=== PATIENT | female | born 1985 | race Caucasian/White ===

== ENCOUNTER 2016-11-11 09:23 | Emergency (ER) | payer MEDICAID ==
[~2016-11-11] VITALS: Ht 160 cm; Wt 68.0 kg
[~2016-11-11 09:23] MED LIST: ACET325T38 PO; CLON1TAB3 PO; HYDR-3812 PO; IBUP-1773 PO; PREN1TAB86 PO; RT-ALBUINH IH
--- OUTSIDE RECORDS SUMMARY | 2016-11-11 09:27 | XMS REPORT | Continuity of Care Document ---
Author Author Interface Organization Interface Address Unknown Phone Unavailable Problems Problem Status Onset Date Classification Date Reported Comments Source Abnormal cytology findings (finding) Active 05/10/2012 Problem 11/17/2015 [facility] Anxiety (finding) Active Problem 11/17/2015 [facility] Helicobacter pylori antibody above reference range (finding) Active 05/15/2012 Problem 11/17/2015 [facility] HPV - Human papillomavirus test positive (finding) Active Problem 11/17/2015 per patient verbal history [facility] , function (observable entity) Resolved 03/26/2012 Problem 11/17/2015 [facility] Tobacco user (finding) Active Problem 11/17/2015 Added by Discern Expert based on Social History Documentation [facility] Other nonspecific abnormal findings Active 05/10/2012 Problem 01/01/2014 [facility] Anxiety state (finding) Active 05/10/2012 Problem 2013 [facility] Unspecified symptom associated with female genital organs 12/28/2013 Diagnosis 01/01/2014 [facility] Medications Medication Details Route Status Patient Instructions Ordering Provider Order Date Source Allergies, Adverse Reactions, Alerts Substance Category Reaction Severity Reaction type Status Date Reported Comments Source NKA Assertion Drug allergy [facility] Immunizations Immunization Date Given Site Status Last Updated Comments Source Tdap 01/30/2013 Left Deltoid tetanus/diphth/pertuss (Tdap) adult/adol<sup>1</sup> Wilian Reason for Medication: See Instructions [facility] Results Order Name Results Value Reference Range Date Interpretation Comments Source Vital Signs Vital Sign Value Date Comments Source Encounters Location Location Details Encounter Type Encounter Number Reason For Visit Attending Provider ADM Date DC Date Status Source [facility] [id number] Day Surgery [id number] Liborio Mojica 12/28/2013 12/28/2013 Active [facility] [id number] Preadmit [id number] Liborio Galina Active [facility] [id number] Preadmit [id number] Elias Sulaiman 05/17/2014 Active [facility] [id number] Preadmit [id number] Liborio Galina Active [facility] Preadmit [id number] . No Family Physician 07/31/2015 11/13/2015 [place] [facility] [id number] Liborio Mojica 201312/29/2013 [facility] Procedures Procedure Code Date Perfomer Comments Source No data available for this section [facility] COLONOSCOPY 09/26/2009 [facility] DIAGNOSTIC LAPAROSCOPY [place] [facility]
[2016-11-11] MEDS ORDERED: OXYC-465 PO (09:41)
[2016-11-11] MEDS ORDERED: CITA20TA7 PO (09:41)
--- NOTE | 2016-11-11 10:18 | Diagnostic Imaging Report ---
PA and lateral views of the chest Indication: Chest pain Findings: The lungs are clear. The heart size is normal. There is no effusion or pneumothorax The mediastinum and christopher appear unremarkable. Impression: Unremarkable study. Dictated by: Dictated on workstation # [id number]
--- NOTE | 2016-11-11 10:24 | ED Chest Pain ---
General Chief Complaint: Chest Wall/Rib Pain Stated Complaint: CHEST PAIN Nursing Triage Note: Pt c/o intermittent right and left sided CP x1 week. Pt reports chest pain is now gone but she is feeling anxious because of pain earlier. Pt reports pain was worse when taking a deep breath. Nursing Sepsis Screen: No Definite Risk Source: patient Exam Limitations: no limitations History of Present Illness Time seen by provider: 10:22 Initial Comments To ER with reports of intermittent sharp chest pain when breathing over the course of the past week. She states that she did feel anxious earlier and thought that may be a cause of the pain but now decided that the pain feels differently. Her primary care provider has diagnosed her recently with fibromyalgia. Timing/Duration: intermittent Severity/Quality: sharp Location: central Radiation: no radiation Activities at Onset: none Associated Symptoms: denies symptoms Allergies and Home Medications Allergies Coded Allergies: divalproex sodium (Unverified Allergy, Unknown, 11/11/16) Home Medications Citalopram Hydrobromide 20 Mg Tablet #30 20 MG PO DAILY (Reported) Oxycodone HCl/Acetaminophen 1 Each Tablet #60 1 TAB PO Q4H PRN PRN PAIN ( Reported) Review of Systems Constitutional: see HPI EENTM: No Symptoms Reported Respiratory: See HPIDenies Cough, Denies Shortness of Air, Denies SOA With Exertion, Denies SOA at Rest Cardiovascular: See HPI Chest Pain Gastrointestinal: No Symptoms Reported Genitourinary: No Symptoms Reported Musculoskeletal: no symptoms reported Skin: no symptoms reported Psychiatric/Neurological: No Symptoms Reported Endocrine: No Symptoms Reported Past Vgmgokb-[id number]-Gnqswi Hx Patient Social History Alcohol Use: Denies Use Recreational Drug Use: No Smoking Status: Current Everyday Smoker Type Used: Cigarettes Recent Foreign Travel: No Contact w/Someone Who Travel: No Recent Infectious Disease Expo: No Recent Hopitalizations: No Immunizations Up To Date Tetanus Booster (TDap): Less than 5yrs Date of Influenza Vaccine: Jun 16, 2016 Seasonal Allergies Seasonal Allergies: No Surgeries HX Surgeries: Yes (scope for endometriosis) Respiratory Hx Respiratory Disorders: Yes Respiratory Disorders: Asthma Cardiovascular Hx Cardiac Disorders: No Neurological Hx Neurological Disorders: No Reproductive System Hx Reproductive Disorders: Yes Sexually Transmitted Disease: No HIV/AIDS: No Female Reproductive Disorders: Endometriosis Genitourinary Hx Genitourinary Disorders: No Gastrointestinal Hx Gastrointestinal Disorders: No Musculoskeletal Hx Musculoskeletal Disorders: Yes ("possible lupus and/or fibro"--seeing [facility] dyer for dx) Musculoskeletal Disorders: Fibromyalgia Endocrine Hx Endocrine Disorders: No (possible lupus - will see [facility]) Endocrine Disorders: Lupus HEENT HX ENT Disorders: No Cancer Hx Cancer: No Psychosocial Hx Psychiatric Problems: Yes Behavioral Health Disorders: Anxiety, PTSD Integumentary HX Skin/Integumentary Disorder: No Blood Transfusions Hx Blood Disorders: No Adverse Reaction to a Blood Tr: No Family Medical History Family Medial History: FH: bladder cancer Grandparents (Maternal grandfather) FH: heart disease 19 FATHER Grandparents (Paternal Grandfather) FH: prostate cancer Grandparents (Maternal grandfather) Physical Exam Vital Signs Vital Sign - Last 12Hours 11/11/16 09:36 Pulse 67 Resp 18 B/P 110/77 Pulse Ox 98 O2 Delivery Room Air Capillary Refill : Less Than 3 Seconds General Appearance: No Apparent Distress WD/WN HEENT: PERRL/EOMI TMs Normal Neck: Full Range of Motion Normal Inspection Respiratory: Normal Breath Sounds No Accessory Muscle Use No Respiratory Distress Cardiovascular: Regular Rate, Rhythm Normal Peripheral Pulses Gastrointestinal: Non Tender Soft Extremity: Normal Capillary Refill Normal Inspection Neurologic/Psychiatric: Alert Oriented x3 No Motor/Sensory Deficits Skin: Normal Color Warm/Dry Progress/Results/Core Measures Results/Orders Lab Results Laboratory Tests Test 11/11/16 10:33 Range/Units Basophils # (Auto) 0.0 0.0-0.1 10^3/uL Basophils (%) (Auto) 0 0-10 % D-Dimer < 0.27 0.00-0.49 UG/ML Eosinophils # (Auto) 0.1 0.0-0.3 10^3/uL Eosinophils (%) (Auto) 1 0-10 % Hematocrit 39 35-52 % Hemoglobin 13.9 11.5-16.0 G/DL Lymphocytes # (Auto) 2.1 1.0-4.0 X 10^3 Lymphocytes (%) (Auto) 33 12-44 % Mean Corpuscular Hemoglobin 31 25-34 PG Mean Corpuscular Hemoglobin Concent 36 32-36 G/DL Mean Corpuscular Volume 88 80-99 FL Mean Platelet Volume 9.7 7.4-10.4 FL Monocytes # (Auto) 0.5 0.0-1.0 X 10^3 Monocytes (%) (Auto) 7 0-12 % Neutrophils # (Auto) 3.9 1.8-7.8 X 10^3 Neutrophils (%) (Auto) 59 42-75 % Platelet Count 184 130-400 10^3/uL Red Blood Count 4.45 4.35-5.85 10^6/uL Red Cell Distribution Width 12.1 10.0-14.5 % White Blood Count 6.5 4.3-11.0 10^3/uL My Orders Orders-HYACINTH HEBERT APRN Cbc With Automated Diff (11/11/16 10:21) Fibrin Degradation Products (11/11/16 10:21) Vital Signs/I&O Vital Sign - Last 12Hours 11/11/16 09:36 Pulse 67 Resp 18 B/P 110/77 Pulse Ox 98 O2 Delivery Room Air Blood Pressure Mean: 88 Departure Impression Impression: Primary Impression: Pleuritic chest pain Disposition: 01 HOME, SELF-CARE Condition: Stable Departure-Patient Inst. Decision time for Depature: 10:23 Referrals: GERSON TEMPLE DO (PCP/Family) Primary Care Physician Patient Instructions: Pleuritic Chest Pain (DC) Scripts Diclofenac Potassium (Zipsor)25 Mg [id number] Mg PO TID PRN PAIN #30 CAP Prov:HYACINTH HEBERT APRN 11/11/16 HYACINTH HEBERT APRN Nov 11, 2016 10:24
[2016-11-11 10:41] LABS: BASOPHILS % (AUTO) 0 % (0-10); EOSINOPHILS # (AUTO) 0.1 10^3/uL (0.0-0.3); EOSINOPHILS % (AUTO) 1 % (0-10); LYMPHOCYTES # (AUTO) 2.1 X 10^3 (1.0-4.0); LYMPHOCYTES % (AUTO) 33 % (12-44); MEAN CORPUSCULAR HEMOGLOBIN 31 PG (25-34); MEAN CORPUSCULAR HGB CONC 36 G/DL (32-36); MEAN CORPUSCULAR VOLUME 88 FL (80-99); MEAN PLATELET VOLUME 9.7 FL (7.4-10.4); MONOCYTES # (AUTO) 0.5 X 10^3 (0.0-1.0); MONOCYTES % (AUTO) 7 % (0-12); NEUTROPHILS # (AUTO) 3.9 X 10^3 (1.8-7.8); NEUTROPHILS % (AUTO) 59 % (42-75); PLATELET COUNT 184 10^3/uL (130-400); RED BLOOD COUNT 4.45 10^6/uL (4.35-5.85); RED CELL DISTRIBUTION WIDTH 12.1 % (10.0-14.5); WHITE BLOOD COUNT 6.5 10^3/uL (4.3-11.0)
[2016-11-11] MEDS ORDERED: DICL25CA4 PO (11:06)
[2016-11-11 11:08] VITALS: BP 118/74
[2016-11-11] MEDS ORDERED: NAPR500T PO (11:21)
== END 2016-11-11 11:08 | disposition home or self-care (01) ==
LOC: EDUNIT# 09:23 → ER 09:24
DX: R07.81 Pleurodynia (principal); F17.210 Nicotine dependence, cigarettes, uncomplicated
CPT/HCPCS: 36415; 71020; 85025; 85379; 99283